=== PATIENT | female | born 1945 | race Hispanic/Latino ===

== ENCOUNTER → 2020-06-14 10:01 | Outpatient (CLI) | payer SELFPAY ==
--- NOTE | ~2020-06-14 | CT_ITS ---
EXAMINATION: CT facial bones w con DATE: 06/14/2020 10:58 INDICATION: Right facial pain. Headache. TECHNIQUE: Computed tomography (CT) of the facial bones and maxillofacial region was performed with 7 5 mL Omnipaque 350 intravenous contrast. Automated exposure control and iterative reconstruction tech [employer] were employed. The dose-length product was 318.53 mGy-cm. COMPARISON: None. FINDINGS: There is mild plaque in the proximal internal carotid arteries with less than 50% stenosis relative to normal distal artery lumen diameters. The orbits are normal. There is mild mucosal thicke rafita in the ethmoid sinuses. Many of the teeth are absent. The oropharynx is unremarkable. There is m oderate cervical spondylosis. The mastoid air cells are normal. IMPRESSION: 1. No specific etiology for the patient's symptoms. Reviewed, dictated and finalized at location A.
[2020-06-14 10:32] LABS: Estimated Glomerular Filt Rate > 60
== END ==
PROVIDERS: Visit Provider Registered Nurse
DX: R51 Headache (principal)
CPT/HCPCS: 36415; 70487; Q9967

== ENCOUNTER 2021-03-18 11:58 | Emergency (ER) | payer SELFPAY ==
--- NOTE | ~2021-03-18 | CT_ITS ---
EXAMINATION: CT brain wo con DATE: 03/18/2021 13:23 INDICATION: Right facial pain TECHNIQUE: Computed tomography (CT) of the head was performed without intravenous contrast. Sagittal and coronal reconstructions were performed. The mA was adjusted according to patient size. Iterative reconstruction technique was employed. The dose-length product was 605.33 mGy-cm. COMPARISON: 06/14/2020 FINDINGS: No acute intracranial hemorrhage, acute infarction or abnormal extra axial fluid collection. Symmetri c slight increased prominence of the sulci consistent with mild age-appropriate diffuse cerebral volu me loss. Ventricles are normal and symmetric. No mass/mass effect. The orbits, paranasal sinuses and mastoid air cells are normal. IMPRESSION: 1. Normal for age head CT. No acute intracranial process. Reviewed, dictated and finalized at location A.
[2021-03-18 12:11] VITALS: BP 173/115; PULSE 89; RESP 18; TEMP 36.4; O2SAT 96
--- NOTE | 2021-03-18 12:39 | ED.GENADULT ---
HPI - General Adult General Chief complaint: Headache Stated complaint: face pain, right side Time Seen by Provider: 03/18/21 12:22 Source: patient History of Present Illness HPI narrative: Patient is a 75 y/o female complaining of right facial pain starting approximately 10 days ago. She describes her pain as sharp, stabbing sensation. She rates her pain as 10/10. Her pain radiates to back of her head. She took Tylenol and Ibuprofen which did not help much. She has difficulty eating due to pain. She has no focal weakness, numbness in arms or legs. She is able to ambulate. Of note, she is non [place]uvian speaking and daughter provided translation. Related Data Home Medications Medication Instructions Recorded Confirmed alendronate mg PO 03/18/21 amlodipine 03/18/21 omeprazole 03/18/21 pravastatin 03/18/21 pravastatin 03/18/21 Allergies Allergy/AdvReac Type Severity Reaction Status Date / Time Penicillins Allergy Unknown Vomiting Verified 03/18/21 12:33 Review of Systems Constitutional: Constitutional: Denies chills, Denies fever(s), Reports headache(s) and Denies weakness Eyes: Eyes: Denies blurry vision ENT: Reports facial pain, Reports headache(s) and Denies neck pain Cardiovascular: Cardiovascular: Denies chest pain and Denies dyspnea Respiratory: Respiratory: Denies cough and Denies dyspnea Gastrointestinal: Gastrointestinal: Denies abdominal pain, Denies diarrhea, Denies nausea and Denies vomiting Genitourinary: Genitourinary: Denies hematuria and Denies dysuria Musculoskeletal: Musculoskeletal: Denies back pain and Denies neck pain Neurologic: Denies headache(s) and Denies weakness [facility] Social History Social History Gender identity (if verbalized by the patient): Female Exam Const: General: no acute distress and well developed Orientation/consciousness: oriented to person, oriented to place, oriented to time and patient oriented x3 HENMT: Head: normocephalic Ears: external ears normal General nose exam: Normal external nose present Eyes: General: appearance normal, both eyes and all related structures Conjunctivae: conjunctivae normal Neck: Neck: normal visual inspection and full ROM Chest: Chest palpation & inspection: normal inspection of the chest and no tenderness Resp: Effort & Inspection: normal respiratory effort Auscultation: clear to auscultation bilaterally Cardio: Rate: regular rate Rhythm: regular rhythm GI: GI Palp: No abdominal tenderness and Yes Soft to palpation Skin: General skin exam: normal color and turgor normal Neuro: General: oriented to person, oriented to place, oriented to time and patient oriented x3 Cranial nerves: Yes CN's II-XII intact bilaterally Cognition (Neuro): normal cognition Speech: normal speech Motor exam (neuro): 5/5 motor strength present throughout Sensory Exam: normal sensation Coordination: [id number] test normal and [id number] test normal Extrem: General: normal to inspection, full ROM and no pedal edema Psych: Appearance: grossly normal Mental Status: mental status grossly normal Affect: normal affect Course Reevaluation(s) Reevaluation #1: Rechecked. Patient states that she feels better. Date: 03/18/21 Time: 14:25 Vital Signs Vital signs: Vital Signs Temperature 36.4 C 03/18/21 12:11 Pulse Rate 89 03/18/21 12:11 Respiratory Rate 18 03/18/21 12:11 Blood Pressure 173/115 H 03/18/21 12:11 Pulse Oximetry 96 03/18/21 12:11 Temperature 36.4 C 03/18/21 13:35 Pulse Rate 82 03/18/21 14:20 Respiratory Rate 19 03/18/21 14:20 Blood Pressure 131/70 03/18/21 14:20 Pulse Oximetry 100 03/18/21 14:20 Medical Decision Making Vital Signs Vital Signs: Vital Signs Temperature 36.4 C 03/18/21 12:11 Pulse Rate 89 03/18/21 12:11 Respiratory Rate 18 03/18/21 12:11 Blood Pressure 173/115 H 03/18/21 12:11 Pulse Oximetry 96
[2021-03-18 12:46] VITALS: BP 172/77; PULSE 79; RESP 14; O2SAT 99
[2021-03-18] MEDS: carBAMazepine 200 MG TABLET PO (13:05)
[2021-03-18] MEDS: KETOROLAC 15 MG/ML VIAL (*BKC) IV PUSH (13:05)
[2021-03-18 13:24] LABS: Basophils Percent Auto 0.5 % (0.2-1.2); Eosinophils Absolute Auto 0.1 K/mm3 (0-0.3); Eosinophils Percent Auto 2.3 % (0-4.4); Hemoglobin 14.1 g/dL (12.0-15.0); Immature Granulocyte Absolute 0.01 K/mm3 (0.00-0.031); Immature Granulocyte Percent A 0.2 % (0-0.5); Lymphocytes Absolute Auto 2.12 K/mm3 (0.9-3.2); Lymphocytes Percent Auto 37.5 % (18.3-44.2); Mean Corpuscular HGB Conc 33.6 g/dl (32-36); Mean Corpuscular Volume 92.3 fl (80-100); Mean Platelet Volume 10.9 fl (7.4-10.4); Monocytes Absolute Auto 0.6 K/mm3 (0.1-0.6); Monocytes Percent Auto 10.8 % (2.6-8.5); Neutrophils Absolute Auto 2.8 K/mm3 (1.3-6.7); Neutrophils Percent Auto 48.7 % (45.5-73.1); Platelet Count Result 196 k/mm3 (150-375); Red Blood Count 4.55 M/mm3 (4.2-5.4); Red Cell Distribution Width 13.5 % (11.5-14.5); White Blood Count 5.7 K/mm3 (4.5-10.0)
[2021-03-18 13:35] VITALS: TEMP 36.4
[2021-03-18 13:52] LABS: Anion Gap 7 mmol/L (8-16); Blood Urea Nitrogen 15 mg/dL (7-17); CRP < 0.5 mg/dL (<1.0); Calcium 9.3 mg/dL (8.4-10.2); Carbon Dioxide 29 mmol/L (22-30); Chloride 106 mmol/L (98-107); Estimated CRCL calculation 51 ml/min; Estimated Glomerular Filt Rate > 60; Glucose 108 mg/dL (65-105); Potassium 3.6 mmol/L (3.4-5.0); Sodium 142 mmol/L (137-145)
[2021-03-18 14:20] VITALS: BP 131/70; PULSE 82; RESP 19; O2SAT 100
[2021-03-18 14:22] LABS: Erythrocyte Sedimentation Rate 20 mm/hr (0-20)
[2021-03-18 14:58] VITALS: BP 134/66; PULSE 77; RESP 18; O2SAT 100
== END 2021-03-18 15:00 | disposition home or self-care (01) ==
PROVIDERS: Emergency Provider Emergency Medicine; PCP Registered Nurse
DX: G50.0 Trigeminal neuralgia (principal)
CPT/HCPCS: 36415; 70450; 80048; 85025; 85652; 86140; 96374; 99284; A9270; J1885